=== PATIENT | female | born 1970 | race Caucasian/White ===

== ENCOUNTER 2018-01-11 05:23 | Emergency (ER) | payer OTHER ==
[~2018-01-11] VITALS: Ht 160 cm; Wt 90.0 kg
[~2018-01-11 05:23] MED LIST: RISPC50 IM
[2018-01-11] MEDS ORDERED: ASCO500T20 PO (06:47)
[2018-01-11] MEDS ORDERED: TRAZ-220 PO (06:47)
[2018-01-11] MEDS ORDERED: QUET200T PO (06:47)
[2018-01-11] MEDS ORDERED: FLUP10 PO (06:47)
[2018-01-11] MEDS ORDERED: RISP1 PO (06:47)
[2018-01-11] MEDS ORDERED: FLUT16H NASAL (06:47)
[2018-01-11] MEDS ORDERED: LORA10TA7 PO (06:47)
[2018-01-11] MEDS ORDERED: QUET100T PO (06:47)
[2018-01-11] MEDS ORDERED: FOLI-74 PO (06:47)
[2018-01-11] MEDS ORDERED: TRIH5TAB2 PO (06:47)
[2018-01-11] MEDS ORDERED: RISP3 PO (06:47)
[2018-01-11] MEDS ORDERED: CALC-724 PO (06:47)
[2018-01-11 07:04] LABS: EOSINOPHILS % (AUTO) 3.2 % (1.0-6.0); HEMATOCRIT 37.4 % (36-46); LYMPHOCYTES # (AUTO) 3.2 K/uL (1.0-4.8); LYMPHOCYTES % (AUTO) 35.6 % (22.0-44.0); MEAN CORPUSCULAR HEMOGLOBIN 31.3 pg (26.0-34.0); MEAN CORPUSCULAR HGB CONC 34.7 G/dL (31.0-37.0); MEAN CORPUSCULAR VOLUME 90 fL (80-100); MONOCYTES # (AUTO) 0.8 K/uL (0.1-1.0); MONOCYTES % (AUTO) 8.7 % (2.0-9.0); NEUTROPHILS # (AUTO) 4.6 K/uL (1.8-7.7); NEUTROPHILS % (AUTO) 51.5 % (40.0-70.0); PLATELET COUNT (AUTO) 269 K/uL (150-450); RED BLOOD CELL COUNT(AUTO) 4.14 MIL/uL (4.00-5.20); RED CELL DISTRIBUTION WIDTH 13.2 % (11.5-14.5)
[2018-01-11 07:14] LABS: ANION GAP 7 mmol/L (8-16); CALCIUM, TOTAL 8.9 mg/dL (8.8-10.5); CARBON DIOXIDE 30 mmol/L (22-29); CHLORIDE 100 mmol/L (98-107); CREATININE 1.08 mg/dL (0.60-1.30); GLOMERULAR FILTR. RATE CALC 54 mL/min (>60); GLUCOSE,RANDOM 97 mg/dL (70-110); POTASSIUM 3.5 mmol/L (3.5-5.1); SODIUM SERUM 137 mmol/L (136-145); UREA NITROGEN, BLOOD 13 mg/dL (7-18)
[2018-01-11 07:20] LABS: ALANINE AMINOTRANSFERASE 23 U/L (12-78); ALBUMIN 3.3 g/dL (3.4-5.0); ALKALINE PHOSPHATASE 90 U/L (46-116); ASPARTATE AMINOTRANSFERASE 15 U/L (15-37); BILIRUBIN,TOTAL 0.3 mg/dL (0.1-1.0); TOTAL PROTEIN, SERUM 7.2 g/dL (6.4-8.2)
[2018-01-11 08:04] LABS: AMPHET/METH SCREEN,URINE POSITIVE (NEGATIVE); BARBITURATE SCREEN, URINE NEGATIVE (NEGATIVE); BENZODIAZEPINES SCREEN,URINE NEGATIVE (NEGATIVE); CANNABINOID SCREEN,URINE NEGATIVE (NEGATIVE); COCAINE SCREEN,URINE NEGATIVE (NEGATIVE); METHADONE SCREEN, URINE NEGATIVE (NEGATIVE); OPIATE SCREEN,URINE NEGATIVE (NEGATIVE)
[2018-01-11 08:06] LABS: PHENCYCLIDINE SCREEN,URINE NEGATIVE (NEGATIVE)
[2018-01-11 08:50] VITALS: BP 113/67
== END 2018-01-11 09:08 | disposition home or self-care (01) ==
LOC: EMS 05:24
DX: F20.9 Schizophrenia, unspecified (principal); F17.210 Nicotine dependence, cigarettes, uncomplicated
CPT/HCPCS: 36415; 80053; 80307; 84703; 85025; 99284; G0480

== ENCOUNTER 2018-07-27 08:46 | Emergency (ER) | payer OTHER ==
[~2018-07-27] VITALS: Ht 160 cm; Wt 86.8 kg
[~2018-07-27 08:46] MED LIST changes: +ASCO500T20 PO; +CALC-724 PO; +FLUP10 PO; +FLUT16H NASAL; +FOLI-74 PO; +LORA10TA7 PO; +QUET100T PO; +QUET200T PO; +RISP1 PO; +RISP3 PO; -RISPC50 IM; +TRAZ-220 PO; +TRIH5TAB2 PO
[2018-07-27 09:45] LABS: BASOPHILS % (AUTO) 0.7 % (0.0-2.0); EOSINOPHILS % (AUTO) 2.8 % (1.0-6.0); HEMOGLOBIN 13.1 g/dL (12.0-16.0); LYMPHOCYTES # (AUTO) 2.9 K/uL (1.0-4.8); LYMPHOCYTES % (AUTO) 30.6 % (22.0-44.0); MEAN CORPUSCULAR HEMOGLOBIN 31.4 pg (26.0-34.0); MEAN CORPUSCULAR HGB CONC 34.5 G/dL (31.0-37.0); MEAN CORPUSCULAR VOLUME 91 fL (80-100); MONOCYTES # (AUTO) 0.6 K/uL (0.1-1.0); MONOCYTES % (AUTO) 6.7 % (2.0-9.0); NEUTROPHILS # (AUTO) 5.6 K/uL (1.8-7.7); NEUTROPHILS % (AUTO) 59.2 % (40.0-70.0); PLATELET COUNT (AUTO) 283 K/uL (150-450); RED BLOOD CELL COUNT(AUTO) 4.17 MIL/uL (4.00-5.20); RED CELL DISTRIBUTION WIDTH 13.2 % (11.5-14.5)
[2018-07-27 09:47] LABS: AMPHET/METH SCREEN,URINE POSITIVE (NEGATIVE); BARBITURATE SCREEN, URINE NEGATIVE (NEGATIVE); BENZODIAZEPINES SCREEN,URINE NEGATIVE (NEGATIVE); CANNABINOID SCREEN,URINE NEGATIVE (NEGATIVE); COCAINE SCREEN,URINE NEGATIVE (NEGATIVE); METHADONE SCREEN, URINE NEGATIVE (NEGATIVE); OPIATE SCREEN,URINE NEGATIVE (NEGATIVE); PHENCYCLIDINE SCREEN,URINE NEGATIVE (NEGATIVE)
[2018-07-27 09:55] LABS: ANION GAP 10 mmol/L (8-16); CALCIUM, TOTAL 9.1 mg/dL (8.8-10.5); CARBON DIOXIDE 28 mmol/L (22-29); CHLORIDE 98 mmol/L (98-107); CREATININE 0.85 mg/dL (0.60-1.30); GLOMERULAR FILTR. RATE CALC > 60 mL/min (>60); GLUCOSE,RANDOM 91 mg/dL (70-110); POTASSIUM 3.6 mmol/L (3.5-5.1); SODIUM SERUM 136 mmol/L (136-145); UREA NITROGEN, BLOOD 7 mg/dL (7-18)
[2018-07-27 10:00] LABS: ALANINE AMINOTRANSFERASE 31 U/L (12-78); ALBUMIN 3.4 g/dL (3.4-5.0); ALKALINE PHOSPHATASE 103 U/L (46-116); ASPARTATE AMINOTRANSFERASE 22 U/L (15-37); BILIRUBIN,TOTAL 0.3 mg/dL (0.1-1.0); TOTAL PROTEIN, SERUM 7.2 g/dL (6.4-8.2)
[2018-07-27] MEDS ORDERED: TRIHEXYPHENIDYL HCL 5 MG TABLET PO ONE (10:45)
[2018-07-27] MEDS ORDERED: QUEtiapine FUMARATE 100 MG TABLET PO ONE (10:45)
[2018-07-27 11:33] VITALS: BP 118/71
== END 2018-07-27 11:30 | disposition home or self-care (01) ==
LOC: EMS 08:47
DX: F20.0 Paranoid schizophrenia (principal); E78.00 Pure hypercholesterolemia, unspecified; F17.210 Nicotine dependence, cigarettes, uncomplicated; F19.90 Other psychoactive substance use, unspecified, uncomplicated
CPT/HCPCS: 36415; 80053; 80307; 85025; 99285; 99406; G0480

== ENCOUNTER 2020-05-17 12:48 | Emergency (ER) | payer MEDICARE, MEDICAID ==
[~2020-05-17] VITALS: Ht 160 cm; Wt 81.8 kg
[~2020-05-17 12:48] MED LIST changes: +CALC-1158 PO; -CALC-724 PO; -QUET100T PO; -RISP1 PO; -RISP3 PO; +RISP3TAB35 PO; -TRAZ-220 PO; +TRAZ-257 PO
[2020-05-17] MEDS ORDERED: SIMV-259 PO (14:00)
[2020-05-17 15:17] LABS: BASOPHILS % (AUTO) 0.7 % (0.0-2.0); EOSINOPHILS % (AUTO) 1.5 % (1.0-6.0); HEMATOCRIT 40.3 % (36-46); HEMOGLOBIN 13.3 g/dL (12.0-16.0); LYMPHOCYTES # (AUTO) 2.4 K/uL (1.0-4.8); MEAN CORPUSCULAR HEMOGLOBIN 30.5 pg (26.0-34.0); MEAN CORPUSCULAR HGB CONC 33.1 G/dL (31.0-37.0); MEAN CORPUSCULAR VOLUME 92 fL (80-100); MONOCYTES # (AUTO) 0.7 K/uL (0.1-1.0); MONOCYTES % (AUTO) 6.8 % (2.0-9.0); NEUTROPHILS # (AUTO) 6.8 K/uL (1.8-7.7); PLATELET COUNT (AUTO) 273 K/uL (150-450); RED BLOOD CELL COUNT(AUTO) 4.38 MIL/uL (4.00-5.20); RED CELL DISTRIBUTION WIDTH 13.3 % (11.5-14.5)
[2020-05-17 15:30] LABS: AMPHET/METH SCREEN,URINE POSITIVE (NEGATIVE); BARBITURATE SCREEN, URINE NEGATIVE (NEGATIVE); BENZODIAZEPINES SCREEN,URINE NEGATIVE (NEGATIVE); CANNABINOID SCREEN,URINE NEGATIVE (NEGATIVE); COCAINE SCREEN,URINE NEGATIVE (NEGATIVE); METHADONE SCREEN, URINE NEGATIVE (NEGATIVE); OPIATE SCREEN,URINE NEGATIVE (NEGATIVE)
[2020-05-17 15:33] LABS: ANION GAP 4 mmol/L (8-16); CALCIUM, TOTAL 9.2 mg/dL (8.8-10.5); CARBON DIOXIDE 32 mmol/L (22-29); CHLORIDE 100 mmol/L (98-107); CREATININE 0.76 mg/dL (0.60-1.30); GLOMERULAR FILTR. RATE CALC > 60 mL/min (>60); GLUCOSE,RANDOM 106 mg/dL (70-110); SODIUM SERUM 136 mmol/L (136-145); UREA NITROGEN, BLOOD 7 mg/dL (7-18)
[2020-05-17 15:34] LABS: PHENCYCLIDINE SCREEN,URINE NEGATIVE (NEGATIVE)
[2020-05-17 15:44] LABS: ALANINE AMINOTRANSFERASE 25 U/L (12-78); ALBUMIN 3.3 g/dL (3.4-5.0); ALKALINE PHOSPHATASE 100 U/L (46-116); ASPARTATE AMINOTRANSFERASE 13 U/L (15-37); BILIRUBIN,TOTAL 0.2 mg/dL (0.1-1.0); HCG,QUANTITATIVE 2 mIU/mL (0-6); TOTAL PROTEIN, SERUM 7.5 g/dL (6.4-8.2)
[2020-05-17] MEDS ORDERED: SIMV-260 PO (15:44)
[2020-05-17] MEDS ORDERED: RISP4TAB73 PO (15:44)
[2020-05-17] MEDS: LORazepam 1 MG TABLET PO ONE (16:03)
[2020-05-17] MEDS: DiphenhydrAMINE HCL 25 MG CAPSULE PO ONE (16:03)
[2020-05-17] MEDS: HALOPERIDOL 5 MG TABLET PO ONE (16:03)
[2020-05-17] MEDS: ACETAMINOPHEN 500 MG TABLET PO ONE (18:28)
[2020-05-17 19:15] VITALS: BP 121/81
== END 2020-05-17 19:43 | disposition home or self-care (01) ==
LOC: EMS 12:49
DX: F20.9 Schizophrenia, unspecified (principal); F15.10 Other stimulant abuse, uncomplicated; F41.9 Anxiety disorder, unspecified; F32.9 Major depressive disorder, single episode, unspecified; E78.00 Pure hypercholesterolemia, unspecified; F17.210 Nicotine dependence, cigarettes, uncomplicated
CPT/HCPCS: 36415; 80053; 80307; 84702; 85025; 99285; G0480

== ENCOUNTER 2021-03-23 17:52 | Inpatient (IN) | payer MEDICARE, MEDICAID ==
[~2021-03-23] VITALS: Ht 157.5 cm; Wt 80.8 kg
[~2021-03-23 17:52] MED LIST changes: -FLUP10 PO; +FLUP10TA13 PO; -RISP3TAB35 PO; +RISP4TAB73 PO; +SIMV-260 PO; -TRIH5TAB2 PO; +TRIH5TAB4 PO
[2021-03-23 22:38] LABS: COVID AG,FIA SOURCE NASOPHARYNGEAL
[2021-03-23] MEDS ORDERED: ZOLPIDEM TARTRATE 10 MG TABLET PO PRN (22:45)
[2021-03-23 23:19] LABS: BASOPHILS % (AUTO) 0.8 % (0.0-2.0); EOSINOPHILS % (AUTO) 3.2 % (1.0-6.0); HEMATOCRIT 40.2 % (36-46); HEMOGLOBIN 13.6 g/dL (12.0-16.0); LYMPHOCYTES # (AUTO) 3.9 K/uL (1.0-4.8); LYMPHOCYTES % (AUTO) 38.7 % (22.0-44.0); MEAN CORPUSCULAR HEMOGLOBIN 30.3 pg (26.0-34.0); MEAN CORPUSCULAR HGB CONC 33.7 G/dL (31.0-37.0); MEAN CORPUSCULAR VOLUME 90 fL (80-100); MONOCYTES # (AUTO) 0.6 K/uL (0.1-1.0); MONOCYTES % (AUTO) 6.2 % (2.0-9.0); NEUTROPHILS # (AUTO) 5.2 K/uL (1.8-7.7); NEUTROPHILS % (AUTO) 51.1 % (40.0-70.0); PLATELET COUNT (AUTO) 309 K/uL (150-450); RED BLOOD CELL COUNT(AUTO) 4.47 MIL/uL (4.00-5.20); RED CELL DISTRIBUTION WIDTH 13.1 % (11.5-14.5)
[2021-03-23 23:28] LABS: ANION GAP 4 mmol/L (8-16); CALCIUM, TOTAL 8.8 mg/dL (8.8-10.5); CARBON DIOXIDE 29 mmol/L (22-29); CHLORIDE 104 mmol/L (98-107); CREATININE 0.84 mg/dL (0.60-1.30); GLOMERULAR FILTR. RATE CALC > 60 mL/min (>60); GLUCOSE,RANDOM 91 mg/dL (70-110); POTASSIUM 3.8 mmol/L (3.5-5.1); SODIUM SERUM 137 mmol/L (136-145); UREA NITROGEN, BLOOD 4 mg/dL (7-18)
[2021-03-23 23:33] LABS: ALANINE AMINOTRANSFERASE 32 U/L (12-78); ALBUMIN 3.6 g/dL (3.4-5.0); ALKALINE PHOSPHATASE 101 U/L (46-116); ASPARTATE AMINOTRANSFERASE 23 U/L (15-37); BILIRUBIN,TOTAL 0.3 mg/dL (0.1-1.0); TOTAL PROTEIN, SERUM 7.5 g/dL (6.4-8.2)
[2021-03-24] MEDS ORDERED: INFLUENZA VIRUS VACCINE QVS 2021-22 (6MO+)/PF 60 MCG/0.5 ML SYRINGE IM. ONE (00:30)
[2021-03-24 02:04] LABS: CHOLESTEROL 165 mg/dL (131-200); TRIGLYCERIDES 148 mg/dL (15-150)
[2021-03-24 02:17] LABS: CHOL/HDL RATIO 2.3 (3.9-5.7); HDL CHOLESTEROL 71 mg/dL (40-60); LDL CHOL (CALC.) 64 mg/dL (0-130)
[2021-03-24 08:00] VITALS: BP 122/85
[2021-03-24] MEDS: LORazepam 2 MG TABLET PO PRN ×2 (09:10→15:55)
[2021-03-24] MEDS: HALOPERIDOL 5 MG TABLET PO PRN ×2 (09:10→17:54)
[2021-03-24] MEDS ORDERED: MAGNESIUM HYDROXIDE SUSPENSION 30 ML UDCUP PO PRN (11:30)
[2021-03-24] MEDS ORDERED: MAG HYDROX/AL HYDROX/SIMETH ES 30 ML SUSPENSION UDCUP PO PRN (11:30)
[2021-03-24] MEDS ORDERED: GuaiFENesin/D-METHORPHAN [SUGAR-FREE] 200-20MG/10 ML SYRUP UDCUP PO PRN (11:30)
[2021-03-24] MEDS ORDERED: IBUPROFEN 400 MG TABLET PO PRN (11:30)
[2021-03-24] MEDS ORDERED: CloNIDine HCL 0.1 MG TABLET PO PRN (11:30)
[2021-03-24] MEDS ORDERED: PETROLATUM,WHITE 28 GM JELLY TP PRN (11:30)
[2021-03-24] MEDS ORDERED: ALBUTEROL SULFATE HFA 90 MCG/PUFF 8 GM INHALER IH PRN (11:30)
[2021-03-24] MEDS ORDERED: LOPERAMIDE HCL 2 MG CAPSULE PO PRN (11:30)
[2021-03-24] MEDS ORDERED: DOCUSATE SODIUM 100 MG CAPSULE PO PRN (11:30)
[2021-03-24] MEDS ORDERED: ONDANSETRON HCL 4 MG TABLET PO PRN (11:30)
[2021-03-24] MEDS: FLUTICASONE PROPIONATE 50 MCG/SPRAY 16 GM NASAL SPRAY NASAL SCH (15:54)
[2021-03-24 16:27] VITALS: BP 132/76
[2021-03-24] MEDS: RisperiDONE 2 MG TABLET PO SCH (20:32)
[2021-03-24] MEDS: SIMVASTATIN 20 MG TABLET PO SCH (20:32)
[2021-03-25 08:05] VITALS: BP 124/71
[2021-03-25] MEDS: ASCORBIC ACID 500 MG TABLET PO SCH (08:33)
[2021-03-25] MEDS: RisperiDONE 2 MG TABLET PO SCH ×2 (08:33→20:19)
[2021-03-25] MEDS: FLUTICASONE PROPIONATE 50 MCG/SPRAY 16 GM NASAL SPRAY NASAL SCH ×2 (08:33→16:46)
[2021-03-25] MEDS: HALOPERIDOL 5 MG TABLET PO PRN (08:33)
[2021-03-25] MEDS: LORazepam 2 MG TABLET PO PRN ×2 (08:33→23:57)
[2021-03-25] MEDS ORDERED: [UNRECOGNIZED DRUG - OTHER] PO SCH (09:00)
[2021-03-25 16:00] VITALS: BP 132/76
[2021-03-25] MEDS: ACETAMINOPHEN 325 MG TABLET PO PRN (16:34)
[2021-03-25 16:35] VITALS: BP 132/78
[2021-03-25] MEDS: NICOTINE 14 MG/24 HOUR PATCH TD PRN (17:54)
[2021-03-25] MEDS: SIMVASTATIN 20 MG TABLET PO SCH (20:19)
[2021-03-26 08:00] VITALS: BP 143/98
[2021-03-26] MEDS: FLUTICASONE PROPIONATE 50 MCG/SPRAY 16 GM NASAL SPRAY NASAL SCH ×2 (08:03→17:06)
[2021-03-26] MEDS: LORazepam 2 MG TABLET PO PRN ×2 (08:03→20:24)
[2021-03-26] MEDS: RisperiDONE 2 MG TABLET PO SCH ×2 (08:03→20:33)
[2021-03-26] MEDS: ASCORBIC ACID 500 MG TABLET PO SCH (08:03)
[2021-03-26] MEDS: NICOTINE 14 MG/24 HOUR PATCH TD PRN (11:47)
[2021-03-26 16:02] VITALS: BP 156/88
[2021-03-26] MEDS: ACETAMINOPHEN 325 MG TABLET PO PRN (16:09)
[2021-03-26] MEDS: HALOPERIDOL 5 MG TABLET PO PRN (20:24)
[2021-03-26] MEDS: SIMVASTATIN 20 MG TABLET PO SCH (20:33)
[2021-03-27] MEDS: HALOPERIDOL 5 MG TABLET PO PRN (08:09)
[2021-03-27] MEDS: ASCORBIC ACID 500 MG TABLET PO SCH (08:09)
[2021-03-27] MEDS: FLUTICASONE PROPIONATE 50 MCG/SPRAY 16 GM NASAL SPRAY NASAL SCH (08:09)
[2021-03-27] MEDS: RisperiDONE 2 MG TABLET PO SCH (08:09)
[2021-03-27] MEDS: LORazepam 2 MG TABLET PO PRN (08:09)
== END 2021-03-27 17:00 | disposition home or self-care (01) | DRG 885 ==
LOC: EMS 17:53 → 3EC 23:52
DX: F20.0 Paranoid schizophrenia (principal); E66.9 Obesity, unspecified; E78.00 Pure hypercholesterolemia, unspecified; E78.5 Hyperlipidemia, unspecified; F15.10 Other stimulant abuse, uncomplicated; I10 Essential (primary) hypertension; J30.9 Allergic rhinitis, unspecified; J44.9 Chronic obstructive pulmonary disease, unspecified; Z20.822 Contact with and (suspected) exposure to COVID-19; R45.850 Homicidal ideations; Z59.00 Homelessness unspecified; Z79.899 Other long term (current) drug therapy; Z87.891 Personal history of nicotine dependence; Z68.32 Body mass index [BMI] 32.0-32.9, adult
CPT/HCPCS: 80053; 80061; 85025; 99285

== ENCOUNTER 2024-01-24 13:17 | Inpatient (IN) | payer MEDICARE, MEDICAID ==
[~2024-01-24] VITALS: Ht 165.1 cm; Wt 59.4 kg
[~2024-01-24 13:17] MED LIST changes: -ASCO500T20 PO; -CALC-1158 PO; -FLUP10TA13 PO; -FLUT16H NASAL; -FOLI-74 PO; -LORA10TA7 PO; +NYST30OI6 TP; -QUET200T PO; +RISP-32 PO; -RISP4TAB73 PO; +RISP4TAB94 PO; -SIMV-260 PO; +TRIH5TAB3 PO; -TRIH5TAB4 PO
[2024-01-24 14:11] LABS: COVID AG,FIA SOURCE NASAL SWAB
[2024-01-24 14:13] LABS: EOSINOPHILS % (AUTO) 2.7 % (1.0-6.0); HEMATOCRIT 37.5 % (36-46); HEMOGLOBIN 12.6 g/dL (12.0-16.0); LYMPHOCYTES % (AUTO) 32.2 % (22.0-44.0); MEAN CORPUSCULAR HEMOGLOBIN 31.2 pg (26.0-34.0); MEAN CORPUSCULAR HGB CONC 33.5 G/dL (31.0-37.0); MEAN CORPUSCULAR VOLUME 93 fL (80-100); MONOCYTES # (AUTO) 0.4 K/uL (0.1-1.0); MONOCYTES % (AUTO) 6.1 % (2.0-9.0); NEUTROPHILS # (AUTO) 3.6 K/uL (1.8-7.7); PLATELET COUNT (AUTO) 250 K/uL (150-450); RED BLOOD CELL COUNT(AUTO) 4.03 MIL/uL (4.00-5.20); RED CELL DISTRIBUTION WIDTH 13.3 % (11.5-14.5); WHITE BLOOD COUNT (AUTO) 6.2 K/uL (4.5-11.0)
[2024-01-24 14:25] LABS: ANION GAP 4 mmol/L (8-16); CALCIUM, TOTAL 8.2 mg/dL (8.8-10.5); CARBON DIOXIDE 31 mmol/L (22-29); CHLORIDE 103 mmol/L (98-107); CREATININE 0.74 mg/dL (0.60-1.30); GLOMERULAR FILTR. RATE CALC > 60 mL/min (>60); GLUCOSE,RANDOM 83 mg/dL (70-110); POTASSIUM 3.8 mmol/L (3.5-5.1); SODIUM SERUM 138 mmol/L (136-145); UREA NITROGEN, BLOOD 11 mg/dL (7-18)
[2024-01-24 14:31] LABS: SARS-COV2 (COVID) ANTIGEN,FIA Negative (Negative)
[2024-01-24 14:35] LABS: ALCOHOL, BLOOD (SERUM) < 3 mg/dL (0-10)
[2024-01-24] MEDS: LORazepam 2 MG/ML VIAL IM ONE (15:12)
[2024-01-24] MEDS: HALOPERIDOL LACTATE 5 MG/ML VIAL IM ONE (15:12)
[2024-01-25 02:14] VITALS: BP 142/72; PULSE 60; RESP 18; TEMP 98; O2SAT 100
[2024-01-25 08:38] VITALS: BP 140/70; PULSE 65; RESP 18; TEMP 98.2; O2SAT 100
[2024-01-25] MEDS ORDERED: ONDANSETRON 4 MG TABLET PO PRN (09:00)
[2024-01-25] MEDS ORDERED: MAG HYDROX/ALUMINUM HYD/SIMETH ES 30 ML SUSPENSION UDCUP PO PRN (09:00)
[2024-01-25] MEDS ORDERED: LOPERAMIDE HCL 2 MG CAPSULE PO PRN (09:00)
[2024-01-25] MEDS ORDERED: CloNIDine HCL 0.1 MG TABLET PO PRN (09:00)
[2024-01-25] MEDS ORDERED: MAGNESIUM HYDROXIDE SUSPENSION 30 ML UDCUP PO PRN (09:00)
[2024-01-25] MEDS ORDERED: GuaiFENesin/D-METHORPHAN [SUGAR-FREE] 200-20MG/10 ML SYRUP UDCUP PO PRN (09:00)
[2024-01-25] MEDS ORDERED: DOCUSATE SODIUM 100 MG CAPSULE PO PRN (09:00)
[2024-01-25 10:13] VITALS: BP 138/72; PULSE 70; RESP 20; TEMP 97.8; O2SAT 98
[2024-01-25] MEDS: RisperiDONE 3 MG TABLET PO SCH (11:17)
[2024-01-25] MEDS: LORazepam 2 MG TABLET PO PRN (14:00)
[2024-01-25 20:10] VITALS: BP 130/65; PULSE 68; RESP 17; TEMP 97.5; O2SAT 98
[2024-01-25] MEDS: TraZODone HCL 100 MG TABLET PO SCH (21:00)
[2024-01-25] MEDS: ZOLPIDEM TARTRATE 10 MG TABLET PO PRN (21:00)
[2024-01-26 08:18] VITALS: BP 151/75; PULSE 66; RESP 19; TEMP 97.9; O2SAT 96
[2024-01-26 08:32] LABS: HEMOGLOBIN A1C 5.5 % (3.8-5.6)
[2024-01-26 08:52] LABS: CHOL/HDL RATIO 2.2 (3.9-5.7); FREE T4 (FREE THYROXINE) 0.97 ng/dL (0.76-1.46); THYROID STIMULATING HORMONE 1.79 uIU/mL (0.36-3.74)
[2024-01-26 14:54] VITALS: BP 132/78; PULSE 82; RESP 18
[2024-01-26] MEDS: NICOTINE 14 MG/24 HOUR PATCH TD PRN (16:02)
[2024-01-26 20:00] VITALS: BP 137/71; PULSE 75; RESP 16; TEMP 97.8; O2SAT 96
[2024-01-27] VITALS (10 sets, daily range): BP systolic 125–145; BP diastolic 73–86; PULSE 68–98; RESP 16–20; TEMP 97.6–98.4; O2SAT 96–100
[2024-01-27 10:03] LABS: APPEARANCE,URINE TURBID (CLEAR); BILIRUBIN,URINE NEGATIVE (NEGATIVE); COLOR,URINE YELLOW (YELLOW); GLUCOSE, URINE (UA) NEGATIVE (NEGATIVE); KETONES,URINE NEGATIVE (NEGATIVE); LEUKOCYTE ESTERASE ,URINE NEGATIVE (NEGATIVE); NITRATE,URINE NEGATIVE (NEGATIVE); OCCULT BLOOD,URINE NEGATIVE (NEGATIVE); PH,URINE 7.5 (5.0-8.0); PH,URINE DRUG SCREEN 7.5 (5.0-8.0); PROTEIN,URINE NEGATIVE (NEGATIVE); SPECIFIC GRAVITIY, URINE 1.018 (1.003-1.030); UROBILINOGEN,URINE <=1.0 mg/dL (<=1.0)
[2024-01-27 10:13] LABS: ALCOHOL, URINE DRUG SCREEN NEGATIVE (NEGATIVE); AMPHET/METH SCREEN,URINE NEGATIVE (NEGATIVE); BARBITURATE SCREEN, URINE NEGATIVE (NEGATIVE); BENZODIAZEPINES SCREEN,URINE NEGATIVE (NEGATIVE); CANNABINOID SCREEN,URINE NEGATIVE (NEGATIVE); COCAINE SCREEN,URINE NEGATIVE (NEGATIVE); METHADONE SCREEN, URINE NEGATIVE (NEGATIVE); OPIATE SCREEN,URINE NEGATIVE (NEGATIVE); PHENCYCLIDINE SCREEN,URINE NEGATIVE (NEGATIVE)
[2024-01-27] MEDS: IBUPROFEN 400 MG TABLET PO PRN (13:57)
[2024-01-28 03:15] VITALS: BP 150/82; PULSE 59; RESP 19; TEMP 97.7; O2SAT 97
[2024-01-28 07:15] VITALS: BP 114/76; PULSE 76; RESP 17; TEMP 97.4; O2SAT 97
[2024-01-28 08:32] VITALS: BP 122/68; PULSE 85; RESP 17; TEMP 97.5; O2SAT 97
[2024-01-28 11:39] VITALS: BP 136/95; PULSE 101; RESP 17; O2SAT 98
[2024-01-28 14:59] VITALS: BP 122/73
[2024-01-28 20:00] VITALS: BP 127/65; PULSE 67; RESP 16; TEMP 98.2; O2SAT 98
[2024-01-29 08:37] VITALS: RESP 16
[2024-01-29 20:08] VITALS: BP 140/76; PULSE 85; RESP 18; TEMP 98.2; O2SAT 99
[2024-01-30 08:13] VITALS: BP 143/73; PULSE 68; RESP 16; TEMP 98.2; O2SAT 97
[2024-01-30] MEDS: ACETAMINOPHEN 325 MG TABLET PO PRN (18:27)
[2024-01-30] MEDS: PETROLATUM,WHITE 28 GM JELLY TP PRN (19:36)
[2024-01-30 20:00] VITALS: BP 141/87; PULSE 84; RESP 16; TEMP 98.4; O2SAT 98
[2024-01-31 08:18] VITALS: BP 157/84; PULSE 91; RESP 18; TEMP 98; O2SAT 99
[2024-01-31 18:45] VITALS: BP 125/74; PULSE 90; RESP 17; TEMP 98.4; O2SAT 96
[2024-01-31 19:45] VITALS: RESP 17; O2SAT 97
[2024-01-31 20:00] VITALS: BP 125/74; PULSE 92; RESP 16; TEMP 98.4; O2SAT 96
[2024-02-01 08:20] VITALS: BP 128/60; PULSE 75; RESP 18; TEMP 98; O2SAT 98
[2024-02-01] MEDS: HALOPERIDOL 5 MG TABLET PO PRN (10:39)
[2024-02-01] MEDS: ALBUTEROL SULFATE HFA 90 MCG/PUFF 8 GM INHALER IH PRN (13:55)
[2024-02-01 20:42] VITALS: BP 138/70; PULSE 74; RESP 16; TEMP 97.8; O2SAT 96
[2024-02-02 08:26] VITALS: BP 140/76; PULSE 91; RESP 16; TEMP 97.5; O2SAT 97
[2024-02-02 20:07] VITALS: BP 137/89; PULSE 80; RESP 16; TEMP 97.8; O2SAT 97
[2024-02-03 08:08] VITALS: BP 144/76; PULSE 70; RESP 16; TEMP 96.9; O2SAT 97
[2024-02-03 20:00] VITALS: BP 160/84; PULSE 96; RESP 16; TEMP 98.6; O2SAT 96
[2024-02-04 08:15] VITALS: BP 122/68; PULSE 74; RESP 16; TEMP 97.6; O2SAT 95
[2024-02-04 20:40] VITALS: BP 154/75; PULSE 75; RESP 18; TEMP 97.5; O2SAT 96
[2024-02-05 08:17] VITALS: BP 135/85; PULSE 74; RESP 17; TEMP 97.3; O2SAT 98
[2024-02-05 20:02] VITALS: BP 129/77; PULSE 83; RESP 16; TEMP 98; O2SAT 97
[2024-02-06 08:16] VITALS: BP 149/74; PULSE 86; RESP 16; TEMP 97.8; O2SAT 95
[2024-02-06 20:17] VITALS: BP 141/72; PULSE 80; RESP 18; TEMP 97.8; O2SAT 97
[2024-02-07 09:25] VITALS: BP 133/73; PULSE 93; RESP 16; TEMP 97.8; O2SAT 96
[2024-02-07 10:47] VITALS: RESP 16
[2024-02-07 11:47] VITALS: RESP 16
[2024-02-07 20:28] VITALS: BP 131/80; PULSE 84; RESP 16; TEMP 97.3; O2SAT 97
[2024-02-08 08:12] VITALS: BP 103/60; PULSE 78; RESP 16; TEMP 97.9; O2SAT 96
[2024-02-08 20:28] VITALS: BP 141/77; PULSE 76; RESP 16; TEMP 98; O2SAT 97
[2024-02-09 08:32] VITALS: BP 108/62; PULSE 74; RESP 16; TEMP 98; O2SAT 97
[2024-02-09 14:45] LABS: GLUCOMETER DEV NAME(LOC) POC.BV; POC SARS-COV2 AG, FIA NEGATIVE (NEGATIVE)
[2024-02-09 18:50] VITALS: BP 126/70; O2SAT 96
[2024-02-09 20:00] VITALS: BP 113/64; PULSE 78; RESP 16; TEMP 98.2; O2SAT 96
[2024-02-10 08:20] VITALS: BP 125/67; PULSE 79; RESP 16; TEMP 97.9; O2SAT 95
[2024-02-10] MEDS ORDERED: RISP3TAB77 PO ×2 (10:43→15:35)
[2024-02-10] MEDS ORDERED: TRAZ-186 PO (10:44)
[2024-02-10] MEDS ORDERED: TRAZ-257 PO (15:35)
== END 2024-02-10 17:13 | disposition home or self-care (01) | DRG 885 ==
LOC: EMS 13:17 → B3A 01-25 01:07 → EMS 01-25 01:11 → B3A 01-28 03:44
PROVIDERS: ADMIT Psychiatry & Neurology Child & Adolescent Psychiatry; ATTEND Psychiatry & Neurology Child & Adolescent Psychiatry
PROC: GZHZZZZ Group Psychotherapy (ICD-10-PCS; principal; 2024-01-25)
PROC: GZ56ZZZ Individual Psychotherapy, Supportive (ICD-10-PCS; 2024-01-25)
PROC: GZ52ZZZ Individual Psychotherapy, Cognitive (ICD-10-PCS; 2024-01-25)
DX: F20.0 Paranoid schizophrenia (principal); I10 Essential (primary) hypertension; G47.00 Insomnia, unspecified; E78.00 Pure hypercholesterolemia, unspecified; F15.90 Other stimulant use, unspecified, uncomplicated; F17.200 Nicotine dependence, unspecified, uncomplicated; Z20.822 Contact with and (suspected) exposure to COVID-19
CPT/HCPCS: 80048; 80061; 80307; 81003; 83036; 84439; 84443; 85025; 99285; G0480; J1630; J2060; J3535

== ENCOUNTER 2024-03-18 19:39 | Inpatient (IN) | payer MEDICARE, MEDICAID ==
[~2024-03-18] VITALS: Ht 165.1 cm; Wt 56.7 kg
[~2024-03-18 19:39] MED LIST changes: -NYST30OI6 TP; -RISP-32 PO; +RISP3TAB77 PO; -RISP4TAB94 PO; +TRAZ-186 PO; -TRIH5TAB3 PO
[2024-03-18 22:44] LABS: ANION GAP 7 mmol/L (8-16); CARBON DIOXIDE 33 mmol/L (22-29); CHLORIDE 101 mmol/L (98-107); CREATININE 0.74 mg/dL (0.60-1.30); GLOMERULAR FILTR. RATE CALC > 60 mL/min (>60); GLUCOSE,RANDOM 87 mg/dL (70-110); SODIUM SERUM 140 mmol/L (136-145); UREA NITROGEN, BLOOD 6 mg/dL (7-18)
[2024-03-18 22:46] LABS: HEMOGLOBIN 13.8 g/dL (12.0-16.0); MEAN CORPUSCULAR HEMOGLOBIN 30.8 pg (26.0-34.0); MONOCYTES # (AUTO) 0.4 K/uL (0.1-1.0); NEUTROPHILS # (AUTO) 3.2 K/uL (1.8-7.7); WHITE BLOOD COUNT (AUTO) 6.6 K/uL (4.5-11.0)
[2024-03-18 22:49] LABS: BASOPHILS % (AUTO) 0.8 % (0.0-2.0); EOSINOPHILS % (AUTO) 4.9 % (1.0-6.0); HEMATOCRIT 41.3 % (36-46); LYMPHOCYTES # (AUTO) 2.6 K/uL (1.0-4.8); LYMPHOCYTES % (AUTO) 39.5 % (22.0-44.0); MEAN CORPUSCULAR HGB CONC 33.3 G/dL (31.0-37.0); MEAN CORPUSCULAR VOLUME 92 fL (80-100); NEUTROPHILS % (AUTO) 48.8 % (40.0-70.0); PLATELET COUNT (AUTO) 289 K/uL (150-450); RED BLOOD CELL COUNT(AUTO) 4.47 MIL/uL (4.00-5.20); RED CELL DISTRIBUTION WIDTH 13.2 % (11.5-14.5)
[2024-03-18 22:52] LABS: ALCOHOL, BLOOD (SERUM) < 3 mg/dL (0-10)
[2024-03-19] MEDS ORDERED: HALOPERIDOL 5 MG TABLET PO PRN (00:30)
[2024-03-19] MEDS ORDERED: LORazepam 2 MG TABLET PO PRN (00:30)
[2024-03-19] MEDS: RisperiDONE 1 MG TABLET PO ONE (02:28)
[2024-03-19 02:51] LABS: COVID AG,FIA SOURCE NASAL SWAB
[2024-03-19 02:56] LABS: SARS-COV2 (COVID) ANTIGEN,FIA Negative (Negative)
[2024-03-19 04:05] VITALS: O2SAT 98
[2024-03-19 04:56] VITALS: BP 141/80; PULSE 63; RESP 18; TEMP 97.7; O2SAT 98
[2024-03-19] MEDS ORDERED: PNEUMOCOCCAL VACCINE POLYVALENT 0.5 ML SYRINGE [PPSV23] IM. ONE (06:00)
[2024-03-19] MEDS ORDERED: INFLUENZA VIRUS VACCINE TVS (6MO+) 2024-25/PF 45 MCG/0.5 ML SYRINGE IM. ONE (06:00)
[2024-03-19 08:24] VITALS: BP 139/78; PULSE 66; RESP 16; TEMP 97.9; O2SAT 98
[2024-03-19] MEDS ORDERED: NICOTINE POLACRILEX 2 MG LOZENGE PO PRN (10:30)
[2024-03-19] MEDS ORDERED: MAG HYDROX/ALUMINUM HYD/SIMETH ES 30 ML SUSPENSION UDCUP PO PRN (12:00)
[2024-03-19] MEDS ORDERED: MAGNESIUM HYDROXIDE SUSPENSION 30 ML UDCUP PO PRN (12:00)
[2024-03-19] MEDS ORDERED: CloNIDine HCL 0.1 MG TABLET PO PRN (12:00)
[2024-03-19] MEDS ORDERED: IBUPROFEN 600 MG TABLET PO PRN (12:00)
[2024-03-19] MEDS ORDERED: DOCUSATE SODIUM 100 MG CAPSULE PO PRN (12:00)
[2024-03-19] MEDS ORDERED: ALBUTEROL SULFATE HFA 90 MCG/PUFF 8 GM INHALER IH PRN (12:00)
[2024-03-19] MEDS ORDERED: OMEPRAZOLE 20 MG CAPSULE PO PRN (12:00)
[2024-03-19] MEDS ORDERED: PETROLATUM,WHITE 28 GM JELLY TP PRN (12:00)
[2024-03-19] MEDS ORDERED: LOPERAMIDE HCL 2 MG CAPSULE PO PRN (12:00)
[2024-03-19] MEDS ORDERED: ONDANSETRON 4 MG TABLET PO PRN (12:00)
[2024-03-19] MEDS ORDERED: BACITRACIN 28 GM OINTMENT TP PRN (12:00)
[2024-03-19] MEDS ORDERED: ACETAMINOPHEN 325 MG TABLET PO PRN (12:00)
[2024-03-19] MEDS: ZOLPIDEM TARTRATE 10 MG TABLET PO PRN (21:05)
[2024-03-19] MEDS: BENZTROPINE MESYLATE 2 MG TABLET PO SCH (21:05)
[2024-03-19 21:16] VITALS: BP 129/82; PULSE 83; RESP 19; TEMP 97.4; O2SAT 96
[2024-03-20 08:15] VITALS: BP 140/78; PULSE 64; RESP 17; TEMP 97; O2SAT 100
[2024-03-20] MEDS: RisperiDONE 3 MG TABLET PO SCH (09:06)
[2024-03-20 20:39] VITALS: BP 140/92; PULSE 62; RESP 18; TEMP 96.7; O2SAT 98
[2024-03-21 08:30] VITALS: BP 121/73; PULSE 77; RESP 17; TEMP 97.1; O2SAT 99
[2024-03-21] MEDS ORDERED: BENZ2TAB84 PO (13:01)
[2024-03-21 20:44] VITALS: BP 144/76; PULSE 74; RESP 18; TEMP 98.1; O2SAT 97
[2024-03-22] MEDS: BENZOCAINE/MENTHOL LOZENGE PO PRN (02:11)
[2024-03-22 08:14] VITALS: BP 118/73; PULSE 89; RESP 17; TEMP 98.1; O2SAT 99
== END 2024-03-22 12:43 | disposition home or self-care (01) | DRG 885 ==
LOC: EMS 19:39 → B2S 03-19 02:30
PROVIDERS: ADMIT Psychiatry & Neurology Psychiatry; ATTEND Psychiatry & Neurology Psychiatry
DX: F20.9 Schizophrenia, unspecified (principal); F41.9 Anxiety disorder, unspecified; I10 Essential (primary) hypertension; J44.9 Chronic obstructive pulmonary disease, unspecified; Z20.822 Contact with and (suspected) exposure to COVID-19; E78.00 Pure hypercholesterolemia, unspecified; F19.10 Other psychoactive substance abuse, uncomplicated; F17.200 Nicotine dependence, unspecified, uncomplicated; F31.9 Bipolar disorder, unspecified; Z79.899 Other long term (current) drug therapy
CPT/HCPCS: 80048; 84703; 85025; 99285; G0480

== ENCOUNTER 2025-03-06 12:05 | Inpatient (IN) | payer MEDICARE, MEDICAID ==
[~2025-03-06] VITALS: Ht 165.1 cm; Wt 54.9 kg
[~2025-03-06 12:05] MED LIST changes: +BENZ2TAB84 PO; -TRAZ-186 PO; -TRAZ-257 PO
[2025-03-06 22:36] VITALS: BP 132/81; PULSE 65; RESP 17; TEMP 97.7; O2SAT 98
[2025-03-07] MEDS: ZOLPIDEM TARTRATE 10 MG TABLET PO PRN (01:30)
[2025-03-07] MEDS ORDERED: MAG HYDROX/ALUMINUM HYD/SIMETH ES 30 ML SUSPENSION UDCUP PO PRN (08:15)
[2025-03-07] MEDS ORDERED: LOPERAMIDE HCL 2 MG CAPSULE PO PRN (08:15)
[2025-03-07] MEDS ORDERED: PETROLATUM,WHITE 28 GM JELLY TP PRN (08:15)
[2025-03-07] MEDS ORDERED: DOCUSATE SODIUM 100 MG CAPSULE PO PRN (08:15)
[2025-03-07] MEDS ORDERED: GuaiFENesin/D-METHORPHAN [SUGAR-FREE] 200-20MG/10 ML SYRUP UDCUP PO PRN (08:15)
[2025-03-07] MEDS ORDERED: MAGNESIUM HYDROXIDE SUSPENSION 30 ML UDCUP PO PRN (08:15)
[2025-03-07] MEDS ORDERED: NICOTINE 14 MG/24 HOUR PATCH TD PRN (08:15)
[2025-03-07] MEDS ORDERED: ONDANSETRON 4 MG TABLET PO PRN (08:15)
[2025-03-07 08:24] VITALS: RESP 16
[2025-03-07 08:45] LABS: PLATELET COUNT (AUTO) 282 K/uL (150-450); RED BLOOD CELL COUNT(AUTO) 4.39 MIL/uL (4.00-5.20); RED CELL DISTRIBUTION WIDTH 13.0 % (11.5-14.5); WHITE BLOOD COUNT (AUTO) 6.7 K/uL (4.5-11.0)
[2025-03-07 09:12] LABS: ASPARTATE AMINOTRANSFERASE 15 U/L (15-37); CALCIUM, TOTAL 8.3 mg/dL (8.8-10.5); CHOL/HDL RATIO 2.3 (3.9-5.7); CREATININE 0.53 mg/dL (0.60-1.30); GLOMERULAR FILTR. RATE CALC > 60 mL/min (>60); GLUCOSE,RANDOM 89 mg/dL (70-110); LDL CHOL (CALC.) 88 mg/dL (0-130); SODIUM SERUM 139 mmol/L (136-145); TOTAL PROTEIN, SERUM 6.4 g/dL (6.4-8.2); UREA NITROGEN, BLOOD 10 mg/dL (7-18)
[2025-03-07] MEDS: BENZTROPINE MESYLATE 2 MG TABLET PO SCH (16:59)
[2025-03-07 22:13] VITALS: RESP 18
[2025-03-08 08:35] VITALS: RESP 18
[2025-03-08] MEDS: IBUPROFEN 400 MG TABLET PO PRN (08:35)
[2025-03-08 08:41] VITALS: BP 137/83; PULSE 90; RESP 16; TEMP 99.6; O2SAT 97
[2025-03-08 08:52] LABS: CHOL/HDL RATIO 2.4 (3.9-5.7); LDL CHOL (CALC.) 96.0 mg/dL (0-130)
[2025-03-08 09:40] VITALS: RESP 18
[2025-03-08] MEDS: ACETAMINOPHEN 325 MG TABLET PO PRN (10:31)
[2025-03-08 20:00] VITALS: BP 133/74; PULSE 67; RESP 18; TEMP 97.8; O2SAT 97
[2025-03-09 08:48] VITALS: BP 140/84; PULSE 80; RESP 17; TEMP 97.2; O2SAT 96
[2025-03-09 23:34] VITALS: BP 142/73; PULSE 80; RESP 18; O2SAT 98
[2025-03-10 00:34] VITALS: RESP 18
[2025-03-10 08:08] VITALS: BP 118/57; PULSE 64; RESP 17; TEMP 97.2; O2SAT 98
[2025-03-10 20:07] VITALS: BP 131/79; PULSE 86; RESP 17; TEMP 98.2; O2SAT 99
[2025-03-11 08:16] VITALS: BP 134/85; PULSE 81; RESP 16; TEMP 97.3; O2SAT 100
[2025-03-11 20:08] VITALS: BP 135/82; PULSE 82; RESP 18; TEMP 98.2; O2SAT 98
[2025-03-12 08:04] VITALS: BP 140/60; PULSE 68; RESP 17; TEMP 98.6; O2SAT 97
[2025-03-12 20:07] VITALS: BP 142/74; PULSE 78; RESP 18; TEMP 97.7; O2SAT 98
[2025-03-13 08:08] VITALS: BP 139/84; PULSE 70; RESP 19; TEMP 97.7; O2SAT 98
[2025-03-13 09:06] LABS: APPEARANCE,URINE CLEAR (CLEAR); GLUCOSE, URINE (UA) NEGATIVE (NEGATIVE); LEUKOCYTE ESTERASE ,URINE TRACE (NEGATIVE); NITRATE,URINE NEGATIVE (NEGATIVE); OCCULT BLOOD,URINE NEGATIVE (NEGATIVE); PH,URINE DRUG SCREEN 6.0 (5.0-8.0); SPECIFIC GRAVITIY, URINE 1.003 (1.003-1.030)
[2025-03-13 09:16] LABS: AMPHET/METH SCREEN,URINE NEGATIVE (NEGATIVE); BARBITURATE SCREEN, URINE NEGATIVE (NEGATIVE); CANNABINOID SCREEN,URINE NEGATIVE (NEGATIVE); COCAINE SCREEN,URINE NEGATIVE (NEGATIVE); METHADONE SCREEN, URINE NEGATIVE (NEGATIVE)
[2025-03-13 09:19] LABS: ALCOHOL, URINE DRUG SCREEN NEGATIVE (NEGATIVE)
[2025-03-13 09:40] LABS: SQUAMOUS EPITHELIAL CELL,UR Few /LPF (None Seen)
[2025-03-13 23:31] VITALS: RESP 16
[2025-03-14 08:33] VITALS: BP 116/65; PULSE 62; RESP 18; TEMP 96.6; O2SAT 97
[2025-03-14 20:00] VITALS: BP 120/78; PULSE 67; RESP 17; TEMP 98.4; O2SAT 98
[2025-03-15 08:17] VITALS: BP 126/82; PULSE 69; RESP 18; TEMP 97.5; O2SAT 99
[2025-03-15 10:03] VITALS: RESP 17
[2025-03-15 11:03] VITALS: RESP 18
[2025-03-15] MEDS: ALBUTEROL SULFATE HFA 90 MCG/PUFF 8 GM INHALER IH PRN (18:46)
[2025-03-15 20:13] VITALS: BP 112/67; PULSE 98; RESP 18; TEMP 98.3; O2SAT 98
[2025-03-16 08:41] VITALS: RESP 17
[2025-03-16 09:16] VITALS: BP 132/81; PULSE 101; RESP 16; TEMP 98.2; O2SAT 100
[2025-03-16 20:13] VITALS: BP 124/72; PULSE 75; RESP 17; TEMP 97.9; O2SAT 97
[2025-03-17 08:43] VITALS: BP 137/74; PULSE 71; RESP 18; TEMP 97.9; O2SAT 97
[2025-03-17 20:06] VITALS: BP 111/72; PULSE 72; RESP 17; TEMP 98.8; O2SAT 99
[2025-03-18 08:21] VITALS: BP 135/66; PULSE 62; RESP 17; TEMP 97.7; O2SAT 97
[2025-03-18 20:20] VITALS: BP 117/76; PULSE 66; RESP 17; TEMP 97.9; O2SAT 98
[2025-03-19 08:38] VITALS: BP 102/66; PULSE 71; RESP 16; TEMP 98.4; O2SAT 98
[2025-03-19 20:22] VITALS: BP 125/80; PULSE 62; RESP 17; TEMP 98.7; O2SAT 98
[2025-03-20 08:24] VITALS: BP 103/63; PULSE 69; RESP 17; TEMP 98.8; O2SAT 97
[2025-03-20 20:24] VITALS: BP 109/86; PULSE 88; RESP 17; TEMP 98.1; O2SAT 98
[2025-03-21 09:56] VITALS: BP 113/89; PULSE 63; RESP 17; TEMP 98.1; O2SAT 95
[2025-03-21 16:59] VITALS: BP 129/81; PULSE 68; RESP 18
[2025-03-21 17:49] VITALS: RESP 18
[2025-03-21 20:07] VITALS: BP 142/69; PULSE 71; RESP 18; TEMP 98.4; O2SAT 96
[2025-03-22 08:13] VITALS: BP 124/96; PULSE 78; RESP 17; TEMP 97.7; O2SAT 98
[2025-03-22] MEDS ORDERED: RISP-32 PO (11:52)
[2025-03-22] MEDS ORDERED: BENZ2TAB84 PO (12:02)
== END 2025-03-22 16:54 | disposition home or self-care (01) | DRG 885 ==
LOC: B3A 21:35 → B2S 03-08 10:08 → B2X 03-21 10:45
PROVIDERS: ADMIT Psychiatry & Neurology Child & Adolescent Psychiatry; ATTEND Psychiatry & Neurology Child & Adolescent Psychiatry
PROC: GZ58ZZZ Individual Psychotherapy, Cognitive-Behavioral (ICD-10-PCS; 2025-03-07)
PROC: GZ56ZZZ Individual Psychotherapy, Supportive (ICD-10-PCS; 2025-03-07)
PROC: GZHZZZZ Group Psychotherapy (ICD-10-PCS; principal; 2025-03-10)
DX: F29 Unspecified psychosis not due to a substance or known physiological condition (principal); E44.0 Moderate protein-calorie malnutrition; F20.0 Paranoid schizophrenia; I10 Essential (primary) hypertension; F12.90 Cannabis use, unspecified, uncomplicated; J44.9 Chronic obstructive pulmonary disease, unspecified; F15.10 Other stimulant abuse, uncomplicated; E78.5 Hyperlipidemia, unspecified; F10.10 Alcohol abuse, uncomplicated; Y90.8 Blood alcohol level of 240 mg/100 ml or more; F19.10 Other psychoactive substance abuse, uncomplicated; Z68.20 Body mass index [BMI] 20.0-20.9, adult; Z79.899 Other long term (current) drug therapy
CPT/HCPCS: 80053; 80061; 80307; 81001; 83036; 84436; 84443; 85025; J3535